=== PATIENT | female | born 1955 | race Caucasian/White ===

== ENCOUNTER 2019-10-29 07:04 | Day surgery (SDC) | payer MEDICARE, BC ==
[~2019-10-29 07:04] MED LIST: Lactated Ringers 1,000 ML IV SCH; Lidocaine 1%/Sod Bicarbonate in NS 8.4% 1 ML Syringe IDERM PRN; Sodium Chloride 0.9% 10 ML Syringe FLUSH PRN
[2019-10-29] MEDS ORDERED: Bupivacaine 0.5%/EPINEPHrine 1:200,000 50 ML MDV ONE (07:10)
[2019-10-29] MEDS ORDERED: Lidocaine 1% with EPINEPHrine 1:100,000 20 ML MDV ONE (07:10)
[2019-10-29] MEDS ORDERED: Ondansetron 4 MG/2 ML SDV ONE (07:11)
[2019-10-29] MEDS ORDERED: Rocuronium 50 MG/5 ML Vial ONE (07:11)
[2019-10-29] MEDS ORDERED: Lidocaine 1% 4 ML ONE (07:11)
[2019-10-29] MEDS ORDERED: Midazolam 1 MG/ML 2 ML SDV ONE (07:11)
[2019-10-29] MEDS ORDERED: Propofol 200 MG/20 ML SDV ONE (07:11)
[2019-10-29] MEDS ORDERED: fentaNYL 250 MCG/5 ML SDV ONE (07:11)
--- NOTE | 2019-10-29 07:33 | PCM.PREANE ---
Preanesthetic Assessment - Procedure Proposed Procedure: open epigastric hernia repair with mesh - Anesthesia/Transfusion/Family Hx Anesthesia History: Prior Anesthesia Without Reaction Family History of Anesthesia Reaction: No Transfusion History: No Prior Transfusion(s) - Review of Systems General: No Symptoms Pulmonary: No Symptoms Cardiovascular: No Symptoms Gastrointestinal: No Symptoms Neurological: Other (TIA mar 2014-) Other: Reports: Thyroid Problems - Physical Assessment NPO Status Date: 10/28/19 NPO Status Time: 19:00 Vital Signs: Last Vital Signs Temp 97.7 F 10/29/19 07:05 Pulse 72 10/29/19 07:05 Resp 16 10/29/19 07:05 BP 144/85 H 10/29/19 07:05 Pulse Ox 96 10/29/19 07:05 Height: 5 ft 4 in Weight: 76.204 kg ASA Class: 2 Mental Status: Alert & Oriented x3 Airway Class: Mallampati = 1 Dentition: Reports: Normal Dentition Thyro-Mental Finger Breadths: 3 Mouth Opening Finger Breadths: 3 ROM/Head Extension: Full Lungs: Clear to Auscultation, Normal Respiratory Effort Cardiovascular: Regular Rate, Regular Rhythm, No Murmurs - Allergies Allergies/Adverse Reactions: Allergies Allergy/AdvReac Type Severity Reaction Status Date / Time No Known Allergies Allergy Verified 10/28/19 16:32 - Blood Blood Available: No - Acknowledgements Anesthesia Type Planned: General Anesthesia Pt an Appropriate Candidate for the Planned Anesthesia: Yes Alternatives and Risks of Anesthesia Discussed w Pt/Guardian: Yes Pt/Guardian Understands and Agrees with Anesthesia Plan: Yes PreAnesthesia Questionnaire HEENT History: Reports: Allergic Rhinitis, Hard of Hearing, Impaired Vision, Sinusitis Cardiovascular History: Reports: High Cholesterol, Hypertension, Other (See Below) Other Cardiovascular History: 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 Respiratory History: Reports: Asthma (no inhalers) Gastrointestinal History: Reports: GERD, Other (See Below) Other Gastrointestinal History: abdominal wall hernia Genitourinary History: Reports: None LATHE TURNER History: Reports: None Musculoskeletal History: Reports: None Neurological History: Reports: Migraines, TIA Psychiatric History: Reports: None Endocrine/Metabolic History: Reports: None Hematologic History: Reports: None Immunologic History: Reports: None Oncologic (Cancer) History: Reports: None Dermatologic History: Reports: None - Past Surgical History Head Surgeries/Procedures: Reports: None HEENT Surgical History: Reports: None Cardiovascular Surgical History: Reports: None Respiratory Surgical History: Reports: None GI Surgical History: Reports: Colonoscopy Female Surgical History: Reports: Breast Reconstruction, Tubal Ligation, Other (See Below) Other Female Surgeries/Procedures: uterine polypectomy Endocrine Surgical History: Reports: Parathyroidectomy Neurological Surgical History: Reports: Other (See Below) Other Neurological Surgeries/Procedures: low back surgery Musculoskeletal Surgical History: Reports: None Oncologic Surgical History: Reports: None Dermatological Surgical History: Reports: None - SUBSTANCE USE Smoking Status *Q: Former Smoker Tobacco Use Within Last Twelve Months: No Second Hand Smoke Exposure: No Days Per Week of Alcohol Use: 1 Recreational Drug Use History: No - HOME MEDS Home Medications: Home Meds Aspirin 192 mg PO DAILY 10/28/19 [History] Famotidine [Pepcid] 20 mg PO DAILY PRN 10/28/19 [History] Levothyroxine 150 mcg PO DAILY 10/28/19 [History] Loratadine [Claritin] 10 mg PO DAILY PRN 10/28/19 [History] Simvastatin 40 mg PO DAILY 10/28/19 [History] - CURRENT (IN HOUSE) MEDS Current Meds: Current Medications Lactated Ringer's (Ringers, Lactated) 1,000 mls @ 125 mls/hr IV ASDIRECTED PANCHO Stop: 10/29/19 23:00 Last Admin: 10/29/19 07:20 Dose: 125 mls/hr Documented by: Lidocaine/Sodium Bicarbonate (Buffered Lidocaine 1% In Ns 8.4%) 0.25 ml IDERM ONETIME PRN PRN Reason: Prior to IV Start Stop: 10/29/19 18:00 Sodium Chloride (Saline Flush) 10 ml FLUSH ASDIRECTED PRN PRN Reason: Keep Vein Open Stop: 10/29/19 18:00 Discontinued Medications Bupivacaine HCl/Epinephrine Bitart (Marcaine 0.5%/Epinephrine 1:200,000) Confirm Administered Dose 50 ml .ROUTE .STK-MED ONE Stop: 10/29/19 07:11 Fentanyl (Sublimaze) Confirm Administered Dose 250 mcg .ROUTE .STK-MED ONE Stop: 10/29/19 07:12 Lidocaine HCl (Xylocaine-Mpf 1%) Confirm Administered Dose 4 mls @ as directed .ROUTE .STK-MED ONE Stop: 10/29/19 07:12 Lidocaine/Epinephrine (Xylocaine 1% With Epinephrine 1:100,000) Confirm Administered Dose 20 ml .ROUTE .STK-MED ONE Stop: 10/29/19 07:11 Midazolam HCl (Versed 1 Mg/Ml) Confirm Administered Dose 2 mg .ROUTE .STK-MED ONE Stop: 10/29/19 07:12 Ondansetron HCl (Zofran) Confirm Administered Dose 4 mg .ROUTE .STK-MED ONE Stop: 10/29/19 07:12 Propofol (Diprivan 20 Ml) Confirm Administered Dose 200 mg .ROUTE .STK-MED ONE Stop: 10/29/19 07:12 Rocuronium Pettus (Zemuron) Confirm Administered Dose 50 mg .ROUTE .ST-MED ONE Stop: 10/29/19 07:12
[2019-10-29] MEDS ORDERED: ceFAZolin 1 GM Vial ONE (08:07)
[2019-10-29] MEDS ORDERED: Dexamethasone 4 MG/ML 5 ML MDV ONE (08:07)
[2019-10-29] MEDS ORDERED: Ondansetron 4 MG/2 ML SDV IVPUSH PRN (08:13)
[2019-10-29] MEDS ORDERED: Ketorolac 30 MG/ML SDV ONE (08:48)
[2019-10-29] MEDS ORDERED: Lactated Ringers 1,000 ML ONE (08:50)
--- NOTE | 2019-10-29 09:14 | PCM.POSTAN ---
POST ANESTHESIA ASSESSMENT - MENTAL STATUS Mental Status: Somnolent - VITAL SIGNS Vital Signs: Last Vital Signs Temp 97.7 F 10/29/19 07:05 Pulse 72 10/29/19 07:05 Resp 16 10/29/19 07:05 BP 144/85 H 10/29/19 07:05 Pulse Ox 96 10/29/19 07:05 0909 90 12 97.8 122/78 95% - RESPIRATORY Respiratory Status: Respiratory Rate WNL, Airway Patent, O2 Saturation Stable, Supplemental Oxygen - CARDIOVASCULAR CV Status: Pulse Rate WNL, Blood Pressure Stable - GASTROINTESTINAL GI Status: No Symptoms - PAIN Pain Score: 0 - POST OP HYDRATION Hydration Status: Adequate & Stable
--- NOTE | 2019-10-29 09:19 | PCM.PRNOTE ---
- Free Text/Narrative Note: Date: 10/29/2019 Operation: open epigastric hernia repair with mesh patch Surgeon: Satya Sanchez MD Assisting: Corey BERGER Findings: 3 cm epigastric hernia containing visceral fat. 8 cm dm ventralite patch placed. Detailed Report: The patient was taken to the operating room and placed in supine position. Trace eout was performed, and general endotracheal anesthesia initiated. The abdomen was prepped and draped in usual sterile fashion. 10 cc of local anesthetic was injected over the hernia site at the epigastrium. A 5 cm incision was made using the scalpel along the midline at the site. Subcutaneous fat was dissected until the hernia sac was encountered. There was a relatively thin hernia sac containing a good amount of visceral fat. The hernia sac and contents were amputated at the level of the fascia. The fascial edges were cleaned in preparation for placement of mesh and fascial closure. Digital inspection of the surrounding peritoneum revealed no additional hernias or adhesions at the site. An 8 cm diameter circular ventralite mesh patch was placed intraperitoneally. This was secured to the edge of the fascia superiorly and inferiorly using the mesh tails and 0 Vicryl suture. The fascia was then closed longitudinally, re-creating the linea alba using several interrupted 0 Vicryl sutures. The subcutaneous space was closed with a few interrupted Vicryl stitches, and the skin was closed with running subcuticular Vicryl stitch. The wound was dressed with Dermabond. The patient tolerated the procedure well. Satya Sanchez MD General Surgery
[2019-10-29] MEDS: fentaNYL 100 MCG/2 ML SDV IVPUSH PRN ×3 (09:23→10:07)
[2019-10-29] MEDS: HYDROmorphone 0.5 MG/0.5 ML Syringe IVPUSH PRN ×2 (09:33→09:50)
[2019-10-29] MEDS ORDERED: oxyCODONE 5 MG Tab PO ONE (10:02)
--- NOTE | 2019-10-29 12:15 | PCM48HPAN ---
Post Anesthesia Note - EVALUATION WITHIN 48HRS OF ANESTHETIC Vital Signs in Normal Range: Yes Patient Participated in Evaluation: Yes Respiratory Function Stable: Yes Airway Patent: Yes Cardiovascular Function Stable: Yes Hydration Status Stable: Yes Pain Control Satisfactory: Yes (pain better- rests- sitting up in bed) Nausea and Vomiting Control Satisfactory: Yes Mental Status Recovered: Yes Vital Signs: Last Vital Signs Temp 97.2 F 10/29/19 09:51 Pulse 70 10/29/19 11:56 Resp 16 10/29/19 11:56 BP 112/79 10/29/19 11:56 Pulse Ox 95 10/29/19 11:56
== END 2019-10-29 14:07 | disposition home or self-care (01) ==
LOC: JD.SDS 07:04
PROVIDERS: ATTEND Surgery
DX: K43.9 Ventral hernia without obstruction or gangrene (principal); J45.909 Unspecified asthma, uncomplicated; I10 Essential (primary) hypertension; K21.9 Gastro-esophageal reflux disease without esophagitis; E78.00 Pure hypercholesterolemia, unspecified; Z79.899 Other long term (current) drug therapy; Z79.82 Long term (current) use of aspirin; Z87.891 Personal history of nicotine dependence
CPT/HCPCS: 49570; 93005; A9270; J0690; J1100; J1170; J1885; J2001; J2250; J2704; J2710; J3010; J3490; J7120; C1781; J2405